=== PATIENT | male | born 1990 | race Caucasian/White ===

== ENCOUNTER 2018-01-17 17:43 | Emergency (ER) | payer OTHER ==
[~2018-01-17] VITALS: Ht 172.7 cm; Wt 120.2 kg
[~2018-01-17 17:43] MED LIST: CODGUAEL PO; Omeprazole20 M1 PO; PROZAC20 MG PO; Zofran Odt4 MG SL
[2018-01-17] MEDS ORDERED: Amoxicillin500 MG PO (18:46)
[2018-01-17] MEDS ORDERED: Naprosyn500 MG PO (18:46)
== END 2018-01-17 18:46 | disposition home or self-care (01) ==
LOC: ER 17:43
DX: K08.89 Other specified disorders of teeth and supporting structures (principal); K03.81 Cracked tooth; F32.9 Major depressive disorder, single episode, unspecified; F17.210 Nicotine dependence, cigarettes, uncomplicated; Z79.899 Other long term (current) drug therapy
CPT/HCPCS: 99282

== ENCOUNTER 2018-03-21 11:01 | Emergency (ER) | payer OTHER ==
[~2018-03-21] VITALS: Ht 175.3 cm; Wt 131.5 kg
[~2018-03-21 11:01] MED LIST changes: +Amoxicillin500 MG PO; +Naprosyn500 MG PO
[2018-03-21 11:28] LABS: BASOPHILS ABSOLUTE AUTO 0.05 K/mm3 (0.00-0.23); BASOPHILS PERCENT AUTO 1 % (0-2); EOSINOPHILS ABSOLUTE AUTO 0.06 K/mm3 (0.00-0.68); EOSINOPHILS PERCENT AUTO 1 % (0-6); Hematocrit 48.1 % (37.0-53.0); Hemoglobin 16.3 g/dL (13.5-17.5); IMMATURE GRAN ABSOLUTE AUTO 0.01 K/mm3 (0.00-0.10); IMMATURE GRAN PERCENT AUTO 0 % (0-1); LYMPHOCYTES PERCENT AUTO 39 % (21-46); MONOCYTES ABSOLUTE AUTO 0.64 K/mm3 (0.16-1.47); MONOCYTES PERCENT AUTO 7 % (4-13); Mean Corpuscular HGB 27.6 pg (26.0-34.0); Mean Corpuscular HGB Conc 33.9 g/dL (31.5-36.5); Mean Corpuscular Volume 82 fL (80-100); Mean Platelet Volume 10.2 fL (9.1-12.4); NEUTROPHILS ABSOLUTE AUTO 4.57 K/mm3 (1.96-9.15); NEUTROPHILS PERCENT AUTO 52 % (41-73); Platelet Count 234 K/mm3 (150-400); RDW Coefficient Variation 12.5 % (11.7-14.2); RDW Standard Deviation 37.1 fL (35.1-46.3); White Blood Cell Count 8.73 K/mm3 (4.00-11.30)
[2018-03-21 11:51] LABS: Alanine Aminotransfer (ALT/SGP 48 U/L (12-78); Albumin, Blood 4.3 g/dL (3.4-5.0); Albumin/Globulin Ratio 1.1 (0.8-1.8); Alk Phos 68 U/L (50-136); Anion Gap 10 mmol/L (6-16); Aspartate Aminotrans (AST/SGOT 26 U/L (12-37); Bilirubin, Total 0.4 mg/dL (0.1-1.0); Blood Urea Nitrogen 19 mg/dL (8-24); Bun/Creatinine Ratio 20.7 (12.0-20.0); CO2, Blood 23 mmol/L (21-32); Calcium, Blood 8.9 mg/dL (8.5-10.1); Chloride, Blood 107 mmol/L (98-108); Creatinine, Blood 0.92 mg/dL (0.60-1.20); Glomerular Filtration Rate >60 (60-); Glucose, Blood 100 mg/dL (70-99); Potassium, Blood 3.5 mmol/L (3.5-5.5); Sodium, Blood 140 mmol/L (136-145); Total Protein, Blood 8.3 g/dL (6.4-8.2)
[2018-03-21] MEDS ORDERED: SUCR1 PO (14:17)
== END 2018-03-21 14:34 | disposition home or self-care (01) ==
LOC: ER 11:01
PROVIDERS: Emergency Medicine
DX: K21.0 Gastro-esophageal reflux disease with esophagitis (principal); Z87.891 Personal history of nicotine dependence; Z79.899 Other long term (current) drug therapy
CPT/HCPCS: 36415; 71046; 80053; 83690; 85025; 99284-25

== ENCOUNTER 2021-10-03 19:57 | Emergency (ER) | payer OTHER ==
[~2021-10-03] VITALS: Ht 175.3 cm; Wt 158.8 kg
[~2021-10-03 19:57] MED LIST changes: +SUCR1 PO
== END 2021-10-03 21:20 | disposition home or self-care (01) ==
LOC: ER 19:57
DX: S93.402A Sprain of unspecified ligament of left ankle, initial encounter (principal); K21.9 Gastro-esophageal reflux disease without esophagitis; Z79.899 Other long term (current) drug therapy; W19.XXXA Unspecified fall, initial encounter
CPT/HCPCS: 99283

== ENCOUNTER 2023-02-10 19:31 | Emergency (ER) | payer OTHER ==
[~2023-02-10] VITALS: Ht 175.3 cm; Wt 158.8 kg
[2023-02-10 19:43] VITALS: BP 171/136
== END 2023-02-10 20:40 | disposition home or self-care (01) ==
LOC: ER 19:31
DX: F41.9 Anxiety disorder, unspecified (principal); K21.9 Gastro-esophageal reflux disease without esophagitis; Z79.899 Other long term (current) drug therapy; F17.200 Nicotine dependence, unspecified, uncomplicated
CPT/HCPCS: 93005; 93010; 99283-25

== ENCOUNTER 2023-04-30 07:16 | Day surgery (SDC) | payer OTHER ==
[~2023-04-30] VITALS: Ht 175.3 cm; Wt 153.7 kg
[2023-04-30] MEDS ORDERED: ESCI10 PO (07:36)
[2023-04-30] MEDS ORDERED: CLON.5 PO (07:37)
[2023-04-30 07:48] VITALS: BP 139/88
--- NOTE | 2023-04-30 08:07 | NUR ---
History, Chart, Medications and Allergies reviewed before start of procedure. Lungs clear T/O to Auscultation. Patient confirms NPO status and agrees with scheduled surgery. Pre-Op teaching done. Pt verbalizes understanding. Patient States Post-Procedure ride home has been arranged.
--- NOTE | 2023-04-30 09:37 | NUR ---
04/30/23 0937 Ying Grimes PRIOR TO START OF MAC: MONITOR INTACT WITH CONTINUOUS PULSE OXIMETRY, CONTINUOUS END TITAL CO2, AND INTERMITTENT BLOOD PRESSURE.
[2023-04-30 09:56] VITALS: BP 108/63
[2023-04-30 10:02] VITALS: BP 103/88
--- NOTE | 2023-04-30 10:25 | NUR ---
DISCHARGE PT A&OX4, VSS/RA, MARIANN PO H20, DRESSED SELF, DENIES PAIN/SOB, IV DC'D. DC INS PROVIDED TO PT AND . LEFT FLOOR, DECLINED WC, WITH TO GO HOME WITH ALL PERSONAL POSSESSIONS.
== END 2023-04-30 10:20 | disposition home or self-care (01) ==
LOC: ORSCMMR 07:16 → ORD 08:30 → ORSCMMR 09:00 → ORD 09:00 → ORSCMMR 10:20
DX: K21.9 Gastro-esophageal reflux disease without esophagitis (principal); K29.70 Gastritis, unspecified, without bleeding; F41.1 Generalized anxiety disorder; F17.290 Nicotine dependence, other tobacco product, uncomplicated; Z79.899 Other long term (current) drug therapy
CPT/HCPCS: 88305; 88342; J2704; J7120

== ENCOUNTER → 2023-06-10 | Outpatient (CLI) | payer OTHER ==
[~2023-06-10] MED LIST changes: +CLON.5 PO; +ESCI10 PO
== END ==
LOC: LAB 10:37 → LAB SHORT 10:37
DX: R30.0 Dysuria (principal)
CPT/HCPCS: 87086

== ENCOUNTER 2024-06-17 14:45 | Emergency (ER) | payer OTHER ==
[~2024-06-17] VITALS: Ht 175.3 cm; Wt 161.5 kg
[2024-06-17 14:51] VITALS: BP 137/101
[2024-06-17 15:34] LABS: Source, Urine Clean Catch
[2024-06-17 15:38] LABS: Appearance, Urine Clear (Clear); Bilirubin, Urine Neg (Neg); Blood, Urine Neg (Neg); Color, Urine Yellow (P-Yellow); Glucose Qualitative, Urine Neg (Neg); Ketones, Urine Neg (Neg); Leukocyte Esterase, Urine 1+ (Neg); Nitrite, Urine Neg (Neg); Protein, Urine Neg (Neg); Urobilinogen, Urine NORM (Normal)
[2024-06-17 15:49] LABS: Bacteria Few /hpf; Red Blood Cells, Urine Not Seen /hpf (0-2); Squamous Epithelial Cells Not Seen /hpf (Few); White Blood Cells, Urine 0-2 /hpf (0-5)
== END 2024-06-17 17:00 | disposition home or self-care (01) ==
LOC: ER 14:45
PROVIDERS: Physician Assistant
DX: R35.0 Frequency of micturition (principal); N32.89 Other specified disorders of bladder; K21.9 Gastro-esophageal reflux disease without esophagitis; Z79.899 Other long term (current) drug therapy; Z87.891 Personal history of nicotine dependence
CPT/HCPCS: 51798; 81001; 87086; 99283